=== PATIENT | female | born 1985 | race Caucasian/White ===

== ENCOUNTER 2016-05-29 15:50 | Outpatient (CLI) | payer MEDICAID | END 2016-05-29 17:12 | disposition home or self-care (01) | LOC: 2LDRP 15:50 → BC 15:50 | DX: O99.89 Other specified diseases and conditions complicating pregnancy, childbirth and the puerperium (principal); R10.9 Unspecified abdominal pain; M54.9 Dorsalgia, unspecified; Z3A.32 32 weeks gestation of pregnancy ==